=== PATIENT | female | born 1965 | race Caucasian/White ===

== ENCOUNTER 2020-02-12 14:17 | Emergency (ER) | payer BC, OTHER ==
[2020-02-12] MEDS ORDERED: Aspirin 81 MG Tab.Chew ONE (14:37)
[2020-02-12] MEDS ORDERED: Aspirin 81 MG Tab.Chew PO ONE (14:38)
[2020-02-12 15:07] LABS: ANION GAP 14.1 mmol/L (5-15); CHLORIDE,CL 103 mmol/L (98-115); SODIUM,NA 139 mmol/L (136-145)
[2020-02-12] MEDS ORDERED: ALPRAZolam 0.25 MG Tab PO ONE (15:07)
--- NOTE | 2020-02-12 15:19 | EDM.PDOC ---
ED HPI GENERAL MEDICAL PROBLEM - General Chief Complaint: Chest Pain Time Seen by Provider: 02/12/20 14:30 Source of Information: Reports: Patient, Family () - History of Present Illness INITIAL COMMENTS - FREE TEXT/NARRATIVE: 54-year-old female presents emergency room with complaints of chest pressure and shortness of breath that started approximately 12:30 today. She denies any chest pain or radiation to her shoulder, neck, jaw, back, arm or upper gastric pain. She denies any exertional discomfort. She denies current palpations although she's had this in the past. She feels the symptoms improve if she lies flat. S itting upright makes her symptoms recur. She's not experiencing any nausea or vomiting complaints. No current headaches, no change in speech, no difficulty with ambulation or balance problems. She is a current smoker has smoked anywhere from half a pack currently up to 1 pack a day for 38 years. She denies any history of asthma or COPD. She does not use an inhaler. Family history good sick cancer in her father and mother, cardiovascular disease in maternal grandfather, hypertension in her father, lipid elevation in her father, rheumatoid arthritis maternal grandmother She has had a significant workup since her chest pain is symptoms have been occurring in July. She's had a prior EKG was suggested possible anterior septal infarct. She had a stress test which prompted further evaluation with cardiology. She ultimately had an angiogram which was normal on August 04. She's had an echocardiogram of her heart which showed ejection fraction of 60-65% normal. Showed normal right ventricular systolic function. She is on Toprol 25 mg daily Crestor 10 mg daily aspirin 81 mg daily lisinopril 10 mg daily. Her primary care is Tato BRITO from [place]. Her blood pressures have been well controlled. Patient has still continued to have some chest pain discomfort since her angiogram. She is recently started on fluoxetine 4 days ago. She does report a history of anxiety in the past but has not been on any medication for this for 4 years. Onset: Today Onset Date: 02/12/20 Onset Time: 12:30 Duration: Chronic (July 2019) Location: Reports: Chest Quality: Reports: Pressure Severity: Moderate Improves with: Reports: Rest Worsens with: Reports: None Associated Symptoms: Reports: Loss of Appetite, Shortness of Breath. Denies: Confusion, Chest Pain, Cough, Diaphoresis, Fever/Chills, Headaches, Nausea/Vomiting, Syncope, Weakness Chest Pain Score (Numeric/FACES): 4 - Related Data Allergies Allergy/AdvReac Type Severity Reaction Status Date / Time acetaminophen [From Percocet] Allergy Itching Verified 02/12/20 14:35 bee pollen Allergy Anaphylactic Verified 02/12/20 14:35 Shock fentanyl Allergy Itching Verified 02/12/20 14:35 oxycodone HCl [From Percocet] Allergy Itching Verified 02/12/20 14:35 venom-wasp [wasp venom] Allergy Anaphylactic Verified 02/12/20 14:35 Shock Home Meds: Home Meds FLUoxetine HCl [Fluoxetine HCl] 40 mg PO DAILY 02/18/16 [History] Biotin 5,000 mcg SL DAILY 02/12/20 [History] Cholecalciferol (Vitamin D3) [Vitamin D3] 125 mcg PO DAILY 02/12/20 [History] Fosinopril [Monopril] 10 mg PO DAILY 02/12/20 [History] Metoprolol Succinate 25 mg PO DAILY 02/12/20 [History] Past Medical History - Past Surgical History Cardiovascular Surgical History: Reports: Other (See Below) Other Cardiovascular Surgeries/Procedures: Cardiac cath 2019 Female Surgical History: Reports: Hysterectomy Musculoskeletal Surgical History: Reports: Other (See Below) Other Musculoskeletal Surgeries/Procedures:: ankle surgery 2015 Social & Family History - Tobacco Use Smoking Status *Q: Current Every Day Smoker Years of Tobacco use: 38 Packs/Tins Daily: 0.5 - Alcohol Use Days Per Week of Alcohol Use: 5 Number of Drinks Per Day: 2 Total Drinks Per Week: 10 - Recreational Drug Use Recreational Drug Use: No ED ROS GENERAL - Review of Systems Review Of Systems: See Below Constitutional: Reports: Decreased Appetite HEENT: Reports: No Symptoms Respiratory: Reports: Shortness of Breath. Denies: Wheezing, Pleuritic Chest Pain, Cough Cardiovascular: Reports: Blood Pressure Problem, Palpitations. Denies: Chest Pain, Dyspnea on Exertion, Edema, Orthopnea, PND, Syncope Endocrine: Reports: No Symptoms GI/Abdominal: Denies: Abdominal Pain, Constipation, Diarrhea, Nausea, Vomiting : Reports: No Symptoms Musculoskeletal: Reports: No Symptoms Skin: Reports: No Symptoms Neurological: Denies: Dizziness, Headache, Numbness, Paresthesia, Trouble Speaking, Difficulty Walking, Weakness, Change in Speech, Gait Disturbance Psychiatric: Reports: Anxiety, Depression Hematologic/Lymphatic: Reports: No Symptoms Immunologic: Reports: No Symptoms ED EXAM, GENERAL - Physical Exam Exam: See Below Exam Limited By: No Limitations General Appearance: Alert, WD/WN, No Apparent Distress Eye Exam: Bilateral Eye: EOMI, PERRL (Pupils are equal) Ears: Hearing Grossly Normal Nose: Normal Inspection Throat/Mouth: Normal Voice, No Airway Compromise Head: Atraumatic, Normocephalic Neck: Normal Inspection, Supple, Non-Tender, Full Range of Motion. No: Carotid Bruit, Lymphadenopathy (L), Lymphadenopathy (R), Tender Midline, Thyromegaly Respiratory/Chest: No Respiratory Distress, Lungs Clear, Normal Breath Sounds Cardiovascular: Normal Peripheral Pulses, Regular Rate, Rhythm, No Edema, No Murmur Peripheral Pulses: 2+: Carotid (L), Carotid (R), Brachial (L), Brachial (R), Posterior Tibial (L), Posterior Tibial (R), Dorsalis Pedis (L), Dorsalis Pedis (R) GI/Abdominal: Soft, Non-Tender Extremities: Normal Inspection, Normal Range of Motion, Non-Tender, No Pedal Edema Neurological: Alert, Oriented, Normal Cognition, No Motor/Sensory Deficits Psychiatric: Normal Affect, Normal Mood Skin Exam: Warm, Dry, Intact, Normal Color, No Rash Lymphatic: No Adenopathy EKG INTERPRETATION EKG Date: 02/12/20 Time: 14:35 Rhythm: NSR Rate (Beats/Min): 61 [place]: Normal P-Wave: Present QRS: Normal ST-T: Normal QT: Normal Comparison: Change From Previous EKG EKG Interpretation Comments: Normal sinus rhythm Septal infarct age undetermined Abnormal ECG Course - Vital Signs Last Recorded V/S: Last Vital Signs Temp 96.9 F 02/12/20 14:27 Pulse 66 02/12/20 15:32 Resp 16 02/12/20 15:32 BP 137/90 02/12/20 15:32 Pulse Ox 97 02/12/20 15:32 - Orders/Labs/Meds Orders: Active Orders 24 hr Category Date Time Status EKG Documentation Completion [RC] ASDIRECTED Care 02/12/20 14:18 Active EKG 12 Lead [EK] Stat Ther 02/12/20 14:18 Ordered Labs: Laboratory Tests 09/04/2202/12/20 02/12/20 Range/Units 14:25 14:25 15:09 WBC 9.71 (5.00-10.00) 10^3/uL RBC 5.26 (3.80-5.50) 10^6/uL Hgb 14.9 (12.0-16.0) g/dL Hct 45.0 (37.0-47.0) % MCV 85.6 (82.0-92.0) fL MCH 28.3 (27.0-31.0) pg MCHC 33.1 (32.0-36.0) g/dL RDW 13.3 (11.5-14.5) % Plt Count 381 (150-400) 10^3/uL MPV 9.8 (7.4-10.4) fL Immature Gran % (Auto) 0.1 (0.0-5.0) % Neut % (Auto) 61.2 (50.0-70.0) % Lymph % (Auto) 32.5 (20.0-40.0) % [place] % (Auto) 5.1 (2.0-8.0) % Eos % (Auto) 0.5 L (1.0-3.0) % Baso % (Auto) 0.6 (0.0-1.0) % Neut # (Auto) 5.93 (2.50-7.00) 10^3/uL Lymph # (Auto) 3.16 (1.00-4.00) 10^3/uL [place] # (Auto) 0.50 (0.10-0.80) 10^3/uL Eos # (Auto) 0.05 L (0.10-0.30) 10^3/uL Baso # (Auto) 0.06 (0.00-0.10) 10^3/uL Immature Gran # (Auto) 0.01 (0.00-0.50) 10^3/uL ESR Cancelled D-Dimer, Quantitative < 100 (<400) ng/mL Sodium 139 (136-145) mmol/L Potassium 4.0 (3.3-5.3) mmol/L Chloride 103 (98-115) mmol/L Carbon Dioxide 25.9 (21.0-32.0) mmol/L Anion Gap 14.1 (5-15) mmol/L BUN 7 (6-25) mg/dL Creatinine 0.82 (0.51-1.17) mg/dL Est Cr Clr Drug Dosing 72.57 mL/min Estimated GFR (MDRD) > 60 mL/min Glucose 104 H (75 - 99) mg/dL Calcium 9.4 (8.7-10.3) mg/dL Total Bilirubin 0.7 (0.2-1.0) mg/dL AST 19 (15-37) U/L ALT 21 (12-78) U/L Alkaline Phosphatase 81 (46-116) IU/L Troponin I 0.07 (0.00-0.070) ng/mL Total Protein 7.6 (6.4-8.2) g/dL Albumin 3.97 (3.00-4.80) g/dL Meds: Medications Discontinued Medications Generic Name Dose Route Start Last Admin Trade Name Freq PRN Reason Stop Dose Admin Alprazolam 0.25 mg 02/12/20 15:07 02/12/20 15:20 Xanax PO 02/12/20 15:08 0.25 mg ONETIME ONE Administration Aspirin 324 mg 02/12/20 14:38 02/12/20 14:50 Aspirin PO 02/12/20 14:39 324 mg ONETIME ONE Administration Aspirin Confirm 02/12/20 14:37 02/12/20 14:57 Aspirin Administered 02/12/20 14:38 Not Given Dose 324 mg .[address] [facility] ONE - Radiology Interpretation Free Text/Narrative:: Chest x-ray PA and lateral from 02/12/2020 Findings: The lungs are clear. The cardiomediastinal contour is normal. Regional bones and soft tissues are unremarkable. Impression: No acute process Departure - Departure Time of Disposition: 16:04 Disposition: Home, Self-Care 01 Condition: Good Clinical Impression: Chest pain, atypical, Anxiety, Tobacco dependence due to cigarettes Hypertension Qualifiers: Hypertension type: essential hypertension Qualified Code(s): I10 - Essential (primary) hypertension Hyperlipidemia Qualifiers: Hyperlipidemia type: mixed hyperlipidemia Qualified Code(s): E78.2 - Mixed hyperlipidemia Instructions: Generalized Anxiety Disorder, Adult, Nonspecific Chest Pain, Adult, Nonspecific Chest Pain, Adult, [id number] Referrals: Tato Bajwa, PA [Primary Care Provider] - Forms: ED Department Discharge Additional Instructions: 1. Avoid exertional activity until further follow-up with her primary care. 2. You have had extensive workup regarding your chest pain in the past. Your lab work today looks unremarkable. Your EKG is unchanged. Recent angiography and echocardiogram your heart which are found to be normal. Recommend further follow-up with your primary care. If you have recurrence of the symptoms I would encourage you to return back to the emergency room for further study and workup. If you experience any of these symptoms she should return back to the emergency room: -Chest discomfort that last greater than 5 minutes -Chest discomfort that gets worse in any way -History of angina, and discomfort not relieved by her usual medications -Shortness of breath, sweats, dizziness, vomiting, or nausea with chest pain or chest discomfort -Chest discomfort moves any arm, neck, back, jaw, or stomach. 3. Continue with your prescribed medications. Sepsis Event Note (ED) - Evaluation Sepsis Screening Result: No Definite Risk - Focused Exam Vital Signs: Vital Signs Temp Pulse Resp BP Pulse Ox 02/12/20 15:32 66 16 137/90 97 02/12/20 15:07 64 16 142/94 H 97 02/12/20 14:27 96.9 F 66 18 144/92 H 98 - My Orders Last 24 Hours: My Active Orders 02/12/20 14:18 EKG Documentation Completion [RC] ASDIRECTED EKG 12 Lead [EK] Stat - Assessment/Plan Last 24 Hours: My Active Orders 02/12/20 14:18 EKG Documentation Completion [RC] ASDIRECTED EKG 12 Lead [EK] Stat Assessment:: Atypical chest pain Mild panic attack Hypertension Hyperlipidemia Tobacco dependence Plan: 1. Avoid exertional activity until further follow-up with her primary care. 2. You have had extensive workup regarding your chest pain in the past. Your lab work today looks unremarkable. Your EKG is unchanged. Recent angiography and echocardiogram your heart which are found to be normal. Recommend further follow-up with your primary care. If you have recurrence of the symptoms I would encourage you to return back to the emergency room for further study and workup. If you experience any of these symptoms she should return back to the emergency room: -Chest discomfort that last greater than 5 minutes -Chest discomfort that gets worse in any way -History of angina, and discomfort not relieved by her usual medications -Shortness of breath, sweats, dizziness, vomiting, or nausea with chest pain or chest discomfort -Chest discomfort moves any arm, neck, back, jaw, or stomach. 3. Continue with your prescribed medications.
--- NOTE | 2020-02-12 15:33 | CR ---
[id number] RAD/RAD Chest PA And Lateral EXAM: RAD Chest PA And Lateral CLINICAL DATA: CHEST PAIN COMPARISON: NO PREVIOUS SIMILAR EXAM IS AVAILABLE. FINDINGS: The lungs are clear. The cardiomediastinal contour is normal. The regional bones and soft tissues are unremarkable. IMPRESSION: NO ACUTE PROCESS. Breezy Brunner MD 02/12/20 153 Thank you for allowing us to participate in the care of your patient.
[2020-02-12 16:31] VITALS: BP 126/81; PULSE 62
== END 2020-02-12 16:25 | disposition home or self-care (01) ==
LOC: KA.ED 14:17
DX: R07.89 Other chest pain (principal); E78.2 Mixed hyperlipidemia; I10 Essential (primary) hypertension; F41.9 Anxiety disorder, unspecified; F17.210 Nicotine dependence, cigarettes, uncomplicated; Z79.899 Other long term (current) drug therapy; Z91.030 Bee allergy status; Z91.038 Other insect allergy status; Z88.6 Allergy status to analgesic agent
CPT/HCPCS: 36415; 71046; 80053; 84484; 85025; 85379; 93005; 99285; A9270

== ENCOUNTER 2023-07-26 13:21 | Emergency (ER) | payer BC, OTHER ==
[2023-07-26] MEDS: Aspirin 81 MG Tab.Chew PO ONE (13:51)
[2023-07-26 14:04] LABS: BASOPHILS ABSOLUTE AUTO 0.04 10^3/uL (0.00-0.10); BASOPHILS PERCENT AUTO 0.4 % (0.0-1.0); HEMATOCRIT 45.5 % (37.0-47.0); HEMOGLOBIN 14.9 g/dL (12.0-16.0); LYMPHOCYTES PERCENT AUTO 25.1 % (20.0-40.0); MEAN CORPUSCULAR HEMOGLOBIN 27.7 pg (27.0-31.0); MEAN CORPUSCULAR HGB CONC 32.7 g/dL (32.0-36.0); MEAN CORPUSCULAR VOLUME 84.7 fL (82.0-92.0); MEAN PLATELET VOLUME 9.5 fL (7.4-10.4); MONOCYTES ABSOLUTE AUTO 0.53 10^3/uL (0.10-0.80); MONOCYTES PERCENT AUTO 5.5 % (2.0-8.0); NEUTROPHILS ABSOLUTE AUTO 6.51 10^3/uL (2.50-7.00); PLATELET COUNT,PLT 402 10^3/uL (150-400); RED BLOOD CELL COUNT 5.37 10^6/uL (3.80-5.50); RED CELL DISTRIBUTION WIDTH 13.2 % (11.5-14.5); WHITE BLOOD CELL COUNT,WBC 9.58 10^3/uL (5.00-10.00)
[2023-07-26 14:05] VITALS: BP 136/82; PULSE 65
[2023-07-26 14:21] LABS: ANION GAP 11.9 mmol/L (5-15); BLOOD UREA NITROGEN,BUN 14 mg/dL (7-18); CALCIUM 9.3 mg/dL (8.7-10.3); CHLORIDE,CL 101 mmol/L (98-107); CREATININE 0.83 mg/dL (0.51-1.17); EST CRCL DRUG DOSING (CG) 68.32 mL/min; GLUCOSE RANDOM 133 mg/dL (70-140); POTASSIUM,K 3.9 mmol/L (3.5-5.1); SODIUM,NA 140 mmol/L (136-145)
[2023-07-26 14:22] LABS: ESTIMATED GFR 81 mL/min (>=60)
== END 2023-07-26 14:45 | disposition home or self-care (01) ==
LOC: KA.ED 13:21
DX: R07.89 Other chest pain (principal); I10 Essential (primary) hypertension; E78.00 Pure hypercholesterolemia, unspecified; F17.210 Nicotine dependence, cigarettes, uncomplicated; Z86.16 Personal history of COVID-19; Z90.710 Acquired absence of both cervix and uterus; Z71.6 Tobacco abuse counseling; Z79.82 Long term (current) use of aspirin; Z79.899 Other long term (current) drug therapy; Z91.030 Bee allergy status; Z88.5 Allergy status to narcotic agent; Z88.6 Allergy status to analgesic agent
CPT/HCPCS: 36415; 71045; 80048; 84484; 85025; 99285; A9270-GY

== ENCOUNTER 2025-02-09 10:13 | Day surgery (SDC) | payer BC, OTHER ==
[2025-02-09] MEDS ORDERED: Sodium Chloride 0.9% 10 ML Syringe FLUSH PRN (10:15)
[2025-02-09] MEDS: Lactated Ringers 1,000 ML IV SCH (10:30)
[2025-02-09] MEDS ORDERED: Midazolam 1 MG/ML 2 ML SDV ONE (10:35)
[2025-02-09] MEDS ORDERED: Propofol 200 MG/20 ML SDV ONE (10:35)
[2025-02-09 13:13] VITALS: BP 131/86; PULSE 70
== END 2025-02-09 12:58 | disposition home or self-care (01) ==
LOC: KA.SDS 10:13
PROVIDERS: ATTEND Surgery
DX: Z12.11 Encounter for screening for malignant neoplasm of colon (principal); D12.5 Benign neoplasm of sigmoid colon; K62.1 Rectal polyp; R19.5 Other fecal abnormalities; I10 Essential (primary) hypertension; F17.200 Nicotine dependence, unspecified, uncomplicated; Z88.8 Allergy status to other drugs, medicaments and biological substances; Z88.5 Allergy status to narcotic agent; Z79.82 Long term (current) use of aspirin; Z91.030 Bee allergy status; Z79.899 Other long term (current) drug therapy
CPT/HCPCS: 88305; J2250; J2704; J7120